=== PATIENT | female | born 1980 | race Caucasian/White ===

== ENCOUNTER 2017-10-23 05:46 | Inpatient (IN) | payer OTHER ==
[2017-10-23 06:54] VITALS: BMI 33.5
[2017-10-23] MEDS ORDERED: ELECTROLYTE-148 SOLN 500 ML IV ONE (08:18)
[2017-10-23] MEDS ORDERED: CITRIC ACID/SODIUM CITRATE 30 ML UNIT-DOSE CUP PO ONE (08:18)
--- NOTE | 2017-10-23 08:24 | HP ---
Past Medical History - Admission Chief Complaint: Elective History of Present Illness: 37 yo @ 39 weeks gestation, with 2 prior C-Sections is pre op for repeat C- Section. History Source: Patient Limitations to Obtaining History: No Limitations - Past Medical History ...: 2 ...Para: 1 ...Term: 1 ...EDC by Erika: 10/30/17 - Past Surgical History Past Surgical History: Yes: Hx Myomectomy: No Hx Transabdominal Cerclage: No - Smoking History Smoking history: Never smoked Have you smoked in the past 12 months: No If you are a former smoker, when did you quit?: 5 years ago - Alcohol/Substance Use Hx Alcohol Use: No History of Substance Use: reports: None - Social History Usual Living Arrangement: Yes: With Spouse History of Recent Travel: No Home Medications - Allergies Allergies/Adverse Reactions: Allergies Allergy/AdvReac Type Severity Reaction Status Date / Time No Known Drug Allergies Allergy Verified 12/15/15 13:04 - Home Medications Home Medications: Ambulatory Orders Pnv No.122/Iron/Folic Acid [ Multi Tablet] 1 each PO DAILY 12/15/15 Oxycodone HCl/Acetaminophen [Percocet 5-325 mg Tablet -] 1 - 2 tab PO Q4H #20 tablet 12/19/15 Family Disease History - Family Disease History Family History: Unremarkable Review of Systems - Review of Systems Constitutional: reports: No Symptoms Eyes: reports: No Symptoms HENT: reports: No Symptoms Neck: reports: No Symptoms Cardiovascular: reports: No Symptoms Respiratory: reports: No Symptoms Gastrointestinal: reports: No Symptoms Genitourinary: reports: No Symptoms Breasts: reports: No Symptoms Reported Musculoskeletal: reports: No Symptoms Neurological: reports: No Symptoms Endocrine: reports: No Symptoms Hematology/Lymphatic: reports: No Symptoms Psychiatric: reports: No Symptoms Pain Intensity: 0 Physical Exam - Maternity Vital Signs: Vital Signs Temperature 98.2 F 10/23/17 06:26 Pulse Rate 102 H 10/23/17 06:26 Respiratory Rate 20 10/23/17 06:26 Blood Pressure 109/72 10/23/17 06:26 O2 Sat by Pulse Oximetry (%) Constitutional: Yes: Well Nourished Eyes: Yes: Conjunctiva Clear HENT: Yes: Atraumatic Neck: Yes: Supple Cardiovascular: Yes: Regular Rate and Rhythm Lungs: Clear to auscultation - Abdominal Exam/OB Number of Fetuses: Single Presentation: Vertex - Vaginal Exam/OB Vaginal Bleediing: No Speculum Exam: No Dilatation (cm): 0 Amniotic Membrane Status: Intact - Physical Exam Musculoskeletal: Yes: WNL Extremities: Yes: WNL ...Motor Strength: WNL Psychiatric: Yes: Alert, Oriented Assessment/Plan Previous Pre op for repeat Consent signed Anesthesia to see patient
[2017-10-23] MEDS ORDERED: morphine SULFATE/Preservative Free 0.5 MG/ML (1cc Syringe) SPIN ONE (08:26)
--- NOTE | 2017-10-23 08:26 | OP ---
Operative Note - Note: Operative Date: 10/23/17 Pre-Operative Diagnosis: Elective Operation: Repeat Low transverse Findings: Baby in cephalic presentation Post-Operative Diagnosis: Same as Pre-op Surgeon: Eda Maya Commercial Loan Administrator: Alec Worthington Anesthesia: Spinal Specimens Removed: Placenta Estimated Blood Loss (mls): 600
[2017-10-23] MEDS ORDERED: ONDANSETRON 4 MG/2 ML VIAL IVPUSH PRN (08:36)
[2017-10-23] MEDS ORDERED: METHYLERGONOVINE MALEATE 0.2 MG/1 ML AMP IM PRN (09:28)
[2017-10-23] MEDS ORDERED: IBUPROFEN 600 MG TABLET (FP) PO PRN (09:28)
[2017-10-23] MEDS ORDERED: OXYTOCIN 20 UNITS in 0.9% NS 20 UNIT/1,000 ML INFUS.BAG IV SCH (09:30)
[2017-10-23] MEDS ORDERED: TUBERCULIN PPD 5 TU/0.1ML SYRINGE (IN PATIENT USE ONLY) ID ONE (09:34)
[2017-10-23] MEDS: IBUPROFEN 800 MG/8 ML IJ IVPB PRN ×2 (15:38→22:01)
[2017-10-24] MEDS: ACETAMINOPHEN 325 MG TABLET (FP) PO PRN ×3 (06:23→20:45)
[2017-10-24] MEDS: IBUPROFEN 600 MG TABLET (FP) PO PRN (06:24)
[2017-10-24 07:39] LABS: BASO % 0.5 % (0-2.0); EOS % 0.9 % (0-4.5); HEMATOCRIT 32.5 % (32.4-45.2); HEMOGLOBIN 10.8 GM/dL (10.7-15.3); LYMPH % 19.7 % (8-40); MCH 26.4 pg (25.7-33.7); MCHC 33.1 g/dl (32.0-36.0); MEAN CELL VOLUME 79.6 fl (80-96); MEAN PLT VOLUME 8.4 fl (7.5-11.1); MONO % 6.3 % (3.8-10.2); NEUT % 72.6 % (42.8-82.8); PLATELET COUNT 224 K/MM3 (134-434); RBC 4.08 M/mm3 (3.60-5.2); RDW 13.2 % (11.6-15.6); WHITE BLOOD COUNT 8.5 K/mm3 (4.0-10.0)
--- NOTE | 2017-10-24 08:03 | PN ---
Progress Note (short form) - Note Progress Note: Anesthesia post op Pt seen and examined S:alert and awake comfortable O: Vital Signs Temperature 98.2 F 10/24/17 06:00 Pulse Rate 80 10/24/17 06:00 Respiratory Rate 20 10/24/17 07:00 Blood Pressure 97/62 10/24/17 06:00 O2 Sat by Pulse Oximetry (%) CBC, BMP 10/24/17 06:30 A/P:s/p c section Doing well post op Continue current care Robert Barksdale MD
--- NOTE | 2017-10-24 08:23 | PN ---
Post Progress Note - Subjective Subjective: 37 yo Para 2 status post repeat , seen and evaluated. She c/o mild incision pain. Post Day: 1 Type of Delivery: Repeat C/S Vital Signs: Vital Signs Temperature 98.2 F 10/24/17 06:00 Pulse Rate 80 10/24/17 06:00 Respiratory Rate 20 10/24/17 07:00 Blood Pressure 97/62 10/24/17 06:00 O2 Sat by Pulse Oximetry (%) Breast Exam: Yes: Soft Uterus: Yes: Fundus Firm Incision: Yes: Dressing dry and intact Abdomen/GI: Yes: Abdomen soft Lochia: Yes: Rubra Lochia, amount: Moderate Extremities: Yes: Calves non-tender Perineum: Yes: Intact Activity: Ambulating - Labs Labs: CBC WBC 8.5 K/mm3 (4.0-10.0) 10/24/17 06:30 RBC 4.08 M/mm3 (3.60-5.2) 10/24/17 06:30 Hgb 10.8 GM/dL (10.7-15.3) 10/24/17 06:30 Hct 32.5 % (32.4-45.2) 10/24/17 06:30 MCV 79.6 fl (80-96) L 10/24/17 06:30 MCH 26.4 pg (25.7-33.7) 10/24/17 06:30 MCHC 33.1 g/dl (32.0-36.0) 10/24/17 06:30 RDW 13.2 % (11.6-15.6) 10/24/17 06:30 Plt Count 224 K/MM3 (134-434) 10/24/17 06:30 MPV 8.4 fl (7.5-11.1) 10/24/17 06:30 Neutrophils % 72.6 % (42.8-82.8) 10/24/17 06:30 Lymphocytes % 19.7 % (8-40) 10/24/17 06:30 Monocytes % 6.3 % (3.8-10.2) 10/24/17 06:30 Eosinophils % 0.9 % (0-4.5) D 10/24/17 06:30 Basophils % 0.5 % (0-2.0) 10/24/17 06:30 Assessment/Plan Status post repeat Ambulation Analgesia as needed Continue routine post op care
[2017-10-24] MEDS ORDERED: BISACODYL 10 MG SUPP.RECT RC PRN (09:28)
[2017-10-24] MEDS ORDERED: DIPHTH,PERTUSS(ACELL),TET 0.5 ML DISP.SYRIN IM ONE (10:00)
[2017-10-24] MEDS ORDERED: FLU VACC QS2017-18 36MOS UP/PF 60 MCG/0.5 ML SYRINGE IM ONE (10:00)
[2017-10-24] MEDS: SIMETHICONE 80 MG TAB.CHEW (FP) PO PRN ×2 (14:55→20:45)
[2017-10-24] MEDS: oxyCODONE HCL 5 MG TABLET PO PRN ×2 (14:57→20:46)
[2017-10-25] MEDS: ACETAMINOPHEN 325 MG TABLET (FP) PO PRN ×4 (01:27→19:46)
[2017-10-25] MEDS: SIMETHICONE 80 MG TAB.CHEW (FP) PO PRN ×4 (01:27→19:45)
[2017-10-25] MEDS: oxyCODONE HCL 5 MG TABLET PO PRN ×4 (01:29→19:45)
--- NOTE | 2017-10-25 12:39 | PN ---
Post Progress Note - Subjective Subjective: 37 yo Para 2 status post repeat , seen and evaluated. She c/o mild incision pain. Post Day: 2 Type of Delivery: Repeat C/S Vital Signs: Vital Signs Temperature 97.8 F 10/25/17 10:00 Pulse Rate 79 10/25/17 10:00 Respiratory Rate 20 10/25/17 10:00 Blood Pressure 111/70 10/25/17 10:00 O2 Sat by Pulse Oximetry (%) Breast Exam: Yes: Soft Uterus: Yes: Fundus Firm Incision: Yes: Other (Steri strips in place) Lochia: Yes: Rubra Lochia, amount: Small Extremities: Yes: Calves non-tender Perineum: Yes: Intact Activity: Ambulating - Labs Labs: CBC WBC 8.5 K/mm3 (4.0-10.0) 10/24/17 06:30 RBC 4.08 M/mm3 (3.60-5.2) 10/24/17 06:30 Hgb 10.8 GM/dL (10.7-15.3) 10/24/17 06:30 Hct 32.5 % (32.4-45.2) 10/24/17 06:30 MCV 79.6 fl (80-96) L 10/24/17 06:30 MCH 26.4 pg (25.7-33.7) 10/24/17 06:30 MCHC 33.1 g/dl (32.0-36.0) 10/24/17 06:30 RDW 13.2 % (11.6-15.6) 10/24/17 06:30 Plt Count 224 K/MM3 (134-434) 10/24/17 06:30 MPV 8.4 fl (7.5-11.1) 10/24/17 06:30 Neutrophils % 72.6 % (42.8-82.8) 10/24/17 06:30 Lymphocytes % 19.7 % (8-40) 10/24/17 06:30 Monocytes % 6.3 % (3.8-10.2) 10/24/17 06:30 Eosinophils % 0.9 % (0-4.5) D 10/24/17 06:30 Basophils % 0.5 % (0-2.0) 12/02/17 06:30 Assessment/Plan Status post repeat Stable Continue routine post op care
[2017-10-26] MEDS: ACETAMINOPHEN 325 MG TABLET (FP) PO PRN ×4 (02:06→16:11)
[2017-10-26] MEDS: IBUPROFEN 600 MG TABLET (FP) PO PRN ×4 (02:06→16:11)
[2017-10-26] MEDS: SIMETHICONE 80 MG TAB.CHEW (FP) PO PRN ×4 (02:06→16:12)
--- NOTE | 2017-10-26 07:07 | PN ---
Progress Note (SOAP) - Current Medications Current Medications: Active Medications Acetaminophen (Tylenol -) 650 mg PO Q4H PRN PRN Reason: FEVER OR PAIN Last Admin: 10/26/17 05:32 Dose: 650 mg Bisacodyl (Dulcolax Suppository -) 10 mg RC PRN PRN PRN Reason: CONSTIPATION Diphenhydramine HCl (Benadryl Injection -) 25 mg IVPUSH Q4H PRN PRN Reason: Pruritis Last Admin: 10/23/17 22:02 Dose: 25 mg Ibuprofen (Motrin -) 600 mg PO Q4H PRN PRN Reason: PAIN Last Admin: 10/26/17 05:31 Dose: 600 mg Ibuprofen (Motrin -) 600 mg PO Q4H PRN PRN Reason: PAIN Ibuprofen (Caldolor Injection -) 800 mg IVPB Q8H PRN PRN Reason: PAIN Last Admin: 10/23/17 22:01 Dose: 800 mg Methylergonovine Maleate (Methergine Injection -) 0.2 mg IM Q4H PRN PRN Reason: Excessive Bleeding (L&D) Ondansetron HCl (Zofran Injection) 4 mg IVPUSH Q4H PRN PRN Reason: NAUSEA Oxycodone HCl (Roxicodone -) 5 mg PO Q4H PRN PRN Reason: PAIN LEVEL 1-5 Last Admin: 10/25/17 19:45 Dose: 5 mg Simethicone (Mylicon -) 80 mg PO Q4H PRN PRN Reason: GAS Last Admin: 10/26/17 05:31 Dose: 80 mg - Objective Vital Signs: Vital Signs Temperature 98.0 F 10/25/17 21:31 Pulse Rate 90 10/25/17 21:31 Respiratory Rate 20 10/25/17 21:31 Blood Pressure 119/73 10/25/17 21:31 O2 Sat by Pulse Oximetry (%) Constitutional: Yes: Well Nourished, No Distress Neck: Yes: WNL Cardiovascular: Yes: WNL Respiratory: Yes: WNL ....Post : Yes: Uterus firm, Uterus non-tender Breast(s): Yes: WNL Musculoskeletal: Yes: WNL Extremities: Yes: WNL
[2017-10-26 07:14] LABS: BASO % 0.8 % (0-2.0); EOS % 2.8 % (0-4.5); HEMATOCRIT 32.5 % (32.4-45.2); HEMOGLOBIN 10.7 GM/dL (10.7-15.3); LYMPH % 31.6 % (8-40); MCH 26.3 pg (25.7-33.7); MCHC 32.8 g/dl (32.0-36.0); MEAN CELL VOLUME 80.2 fl (80-96); MEAN PLT VOLUME 7.8 fl (7.5-11.1); MONO % 7.6 % (3.8-10.2); NEUT % 57.2 % (42.8-82.8); PLATELET COUNT 278 K/MM3 (134-434); RBC 4.05 M/mm3 (3.60-5.2); RDW 13.6 % (11.6-15.6); WHITE BLOOD COUNT 7.2 K/mm3 (4.0-10.0)
[2017-10-26 08:32] VITALS: BP 91/54; PULSE 75; TEMP 98.1
--- NOTE | 2017-10-26 09:31 | DS ---
Physical Exam-MILL HELPER Vital Signs: Vital Signs Temperature 98.1 F 10/26/17 07:20 Pulse Rate 75 10/26/17 07:20 Respiratory Rate 20 10/26/17 07:20 Blood Pressure 91/54 10/26/17 07:20 O2 Sat by Pulse Oximetry (%) Constitutional: Yes: Well Nourished Eyes: Yes: Conjunctiva Clear HENT: Yes: Atraumatic Neck: Yes: Supple Cardiovascular: Yes: Regular Rate and Rhythm Respiratory: Yes: Regular, CTA Bilaterally Gastrointestinal: Yes: Normal Bowel Sounds External Genitalia: Yes: Normal Vaginal Exam: Yes: Normal Cervix: Yes: Normal Uterus: Yes: Normal Wound/Incision: Yes: Well Approximated, Steri Strips (in place). No: Bleeding Neurological: Yes: Alert, Oriented ...Motor Strength: WNL Psychiatric: Yes: Alert, Oriented Labs: CBC, BMP 10/26/17 06:40 Delivery - Delivery Type of Anesthesia: Spinal EBL (cc): 500 Delivery, Single - Stages of Labor Date of Delivery: 10/23/17 Time of Delivery: 08:40 Time Placenta Delivered: 08:41 - Condition of Slasher Runner/Telephone Information Clerk Present: Yes Name: Kian Waldrop Infant Gender: Male Weight: 7 lb 14 oz Position: OT Total Hours ROM (Hrs/Mins): 1M - 1 Minute Total Score: 9 5 Minutes Total Score: 9 - [place] Feeding Plan Initial Plan: Elected not to breastfeed exclusively throughout hospitalization Discharge Summary Reason For Visit: ADMIT Procedures: Principal: Repeat Low Transverse Hospital Course: Patient admitted for post op care. She received antiviral medication for cold sores of the lip. No additional dosage of antibiotic, no blood transfusion required. Condition: Good - Instructions Diet, Activity, Other Instructions: Physical activity Resume your normal everyday activity as tolerated no heavy lifting or exercise until seen by your surgeon. You may walk unlimited siena of and climb stairs. You may resume driving the car when you feel safe and comfortable behind the wheel. No sexual activity as instructed. Wound care If you have a bandage, leave it on, and keep dry for 48-72 hours. After that time discard the outer bandage. If they are tapes on the skin under the out of bandage leave them in place. They will peel off in the next 7 to 10 days. Do Not Peel them off. You may shower the day after surgery. If there are tapes present on the skin, you may shower over them. Diet There are no dietary restrictions. Eat healthy, high-fiber foods. Drink 6 to 8 glasses of liquid each day. This will assist in keeping your bowels are regular. Pain management You may take Tylenol or acetaminophen or Ibuprofen (for example, Motrin, Advil etc.) from my pain prescription medication is ordered should be taken as prescribed for moderate to severe pain. Call MD for any of the following: Severe pain not relieved by medication Fever of 101 or higher Excessive bleeding or drainage on dressing Inability to urinate Referrals: Eda Maya MD [Family Provider] - Disposition: HOME - Home Medications Comprehensive Discharge Medication List: Ambulatory Orders Pnv No.122/Iron/Folic Acid [ Multi Tablet] 1 each PO DAILY 12/15/15 Oxycodone HCl/Acetaminophen [Percocet 5-325 mg Tablet -] 1 - 2 tab PO Q4H #20 tablet 12/19/15 Ibuprofen [Motrin -] 600 mg PO QID PRN #28 tablet 10/26/17
[2017-10-26] MEDS ORDERED: valACYclovir HCL 500 MG TABLET (FP) PO SCH (10:00)
--- NOTE | 2017-10-29 10:08 | OP ---
DATE OF OPERATION: 10/23/2017 PREOPERATIVE DIAGNOSIS: Previous section, at 39 weeks. POSTOPERATIVE DIAGNOSIS: Previous section, at 39 weeks. PROCEDURE: Repeat low transverse section. SURGEON: Eda Maya MD MAIL MANAGER: CICI Bazzi ANESTHESIA: Spinal. COMPLICATIONS: None. ESTIMATED BLOOD LOSS: 600 mL DESCRIPTION OF PROCEDURE: Patient was taken to the operating room where spinal anesthesia was administered. Patient was then prepped and draped in proper sterile fashion. A Pfannenstiel skin incision was made and carried down to the underlying layer of fascia. The fascia was incised in the midline and extended laterally. The superior aspect of the fascial incision was then grasped with a Ana clamp, elevated, and the rectus muscle dissected out bluntly. The rectus muscle was then in the midline. The peritoneum identified and entered sharply with the Metzenbaum scissors. The peritoneum incision was extended superiorly and inferiorly with good visualization of the bladder. Then, the vesicouterine peritoneum was then grasped with a pickup and entered sharply with the Metzenbaum scissors. This incision was extended laterally and a bladder flap created digitally. Then, the lower uterine segment was incised using a 10-blade. This incision was extended laterally and the head delivered atraumatically. Nose and mouth were suctioned and the cord clamped and cut. The infant was handed to the waiting search engine optimization strategist. Then, the placenta was removed manually. The uterus exteriorized and cleared of all clots and debris. The uterine incision was repaired using 0 Biosyn in a running locked fashion. A second layer of the same suture was used as a means to provide excellent hemostasis. The pelvis was then completely irrigated. The uterus was returned to the abdomen. The peritoneum was closed using 2-0 Biosyn. The fascia was reapproximated using 0 Vicryl in a running fashion. The skin was closed in a subcuticular fashion using 3-0 Vicryl. Patient tolerated the procedure well. Patient was then taken to PACU in stable condition. PATHOLOGY: Placenta. Sabine GALLEGOS/[id number]
--- NOTE | 2017-10-30 16:50 | PATH ---
Surgical Pathology Report Patient Name: GALE PELAEZ [facility]. Rec. #: [id number] /Age/Gender: 1980 (Age: 37) / F Account: [id number] Location: [facility] OBS/AUTOMOBILE SERVICE WRITER Taken: 10/23/2017 Received: 10/26/2017 Reported: 10/30/2017 Physicians: dEa Maya M.D. Specimen(s) Received PLACENTA Clinical History History of previous Final Diagnosis PLACENTA, SECTION: 442 g THIRD TRIMESTER PLACENTA WITH TRIVASCULAR UMBILICAL CORD AND UNREMARKABLE PLACENTAL MEMBRANES. Electronically Signed Marcia Walden M.D. Gross Description The specimen is received fresh labeled placenta and is a 442 gram, 15.5 x 15.5 x 2.5 cm. placenta with attached membranes and umbilical cord. The attached membranes are sexton, translucent with focal opacities and insert marginally. The umbilical cord measures 27 cm. in length and averages 1.2 cm. in diameter. The cord inserts eccentrically, 4 cm. to the nearest margin. No true knots or strictures are identified. Cut surface of the umbilical cord reveals 3 vessels. The surface is nogueira-blue with minimal fibrin deposition and appropriate caliber vessels. The maternal surface is red-brown with focal defects. Sectioning reveals red-brown, spongy parenchyma. No lesions are identified. Heel Seat Sander sections are submitted in three cassettes as follows: 1- membrane rolls and umbilical cord; 2-3- full thickness sections of placenta. 10/29/201710/29/2017
== END 2017-10-26 18:20 | disposition home or self-care (01) | DRG 540 ==
LOC: JLDR 05:46 → J3W 10:35
PROVIDERS: ADMIT Obstetrics & Gynecology; ATTEND Obstetrics & Gynecology
PROC: 10D00Z1 Extraction of Products of Conception, Low, Open Approach (ICD-10-PCS; principal; 2017-10-23)
PROC: 3E0334Z Introduction of Serum, Toxoid and Vaccine into Peripheral Vein, Percutaneous Approach (ICD-10-PCS; 2017-10-23)
DX: O34.211 Maternal care for low transverse scar from previous cesarean delivery (principal); N85.8 Other specified noninflammatory disorders of uterus; Z3A.39 39 weeks gestation of pregnancy; O26.893 Other specified pregnancy related conditions, third trimester; Z67.91 Unspecified blood type, Rh negative; Z37.0 Single live birth
CPT/HCPCS: 36415; 71020-TC; 85025; 85461; 86999; 88307-TC; 90686; 90715; G0008

== ENCOUNTER 2017-10-29 08:31 | Emergency (ER) | payer OTHER ==
[2017-10-29 08:37] VITALS: BP 141/75; PULSE 79; TEMP 97.9; BMI 31.1
--- NOTE | 2017-10-29 09:14 | PDOC ---
History of Present Illness - General Stated Complaint: POST-SURG, ALLERGIC RXN Time Seen by Provider: 10/29/17 08:49 History Source: Patient Exam Limitations: No Limitations - History of Present Illness Initial Comments: 10/29/17 09:01 Patient is a [37-year-old female, with on 10/28/2017. Started to have rash with itching yesterday only took Motrin. Patient had pruritic rash to torso or legs and arms, woke up today with swelling to the face, swelling to the face has prior to arrival denies any respiratory difficulty, no difficulty swallowing, no fever. Still with pruritus generalized.] Past Medical History: [Denies]. Allergies: No known allergies Medications: [Motrin when necessary and ] Family History: Non-contributory Social History: Denies smoking, alcohol use, or IVDU Review of Systems GENERAL/CONSTITUTIONAL: [No fever or chills. No weakness. No weight change.] HEAD, EYES, EARS, NOSE AND THROAT: [No change in vision. No ear pain or discharge. No sore throat. ] CARDIOVASCULAR: [No chest pain or shortness of breath.] RESPIRATORY: [No cough, wheezing, or hemoptysis.] GASTROINTESTINAL: [No nausea, vomiting, diarrhea or constipation. No rectal bleeding.] GENITOURINARY: [No dysuria, frequency, or change in urination.] MUSCULOSKELETAL: [No joint or muscle swelling or pain. No neck or back pain.] SKIN : [Generalized pruritus, wheels.] NEUROLOGIC: [No headache, vertigo, loss of consciousness, or loss of sensation.] PSYCHIATRIC: [No depression or anxiety.] ENDOCRINE: [No increased thirst. No abnormal weight change.] HEMATOLOGIC/LYMPHATIC: [No anemia, easy bleeding, or history of blood clots.] ALLERGIC/IMMUNOLOGIC: [No hives or skin allergy. No latex allergy.] Physical Exam: GENERAL: [The patient is awake, alert, and fully oriented, in no acute distress. ] HEAD: [Normal with no signs of trauma.] EYES: [Pupils equal, round and reactive to light, extraocular movements intact, sclera anicteric, conjunctiva clear.] ENT: [Ears normal, nares patent, oropharynx clear without exudates. Moist mucous membranes. No uvula deviation] NECK: [Normal range of motion, supple without lymphadenopathy, JVD, or masses.] LUNGS: [Breath sounds equal, clear to auscultation bilaterally. No wheezes, and no crackles.] HEART: [Regular rate and rhythm, normal S1 and S2 without murmur, rub or gallop. ] ABDOMEN: [Soft, nontender, normoactive bowel sounds. No guarding, no rebound. No masses. No bruising or abrasions] RECTAL : [Guaiac negative, normal rectal tone.] MUSCULOSKELETAL: [Normal range of motion, no edema. No clubbing or cyanosis. No cords, erythema, or tenderness. No CVA Tenderness with fist.] NEUROLOGICAL: [Cranial nerves II through XII grossly intact. Normal speech, normal gait.] PSYCH: [Normal mood, normal affect.] SKIN: [Hives noted to torso and upper legs.] 10/29/17 09:17 Past History - Past Medical History Allergies/Adverse Reactions: Allergies Allergy/AdvReac Type Severity Reaction Status Date / Time No Known Drug Allergies Allergy Verified 10/29/17 08:34 Home Medications: Ambulatory Orders Hydrocortisone 2.5% Lotion [Hytone 2.5% Lotion -] 1 applic TP BID #1 bottle 06/08 Loratadine [Claritin -] 10 mg PO DAILY #30 tablet 10/29/17 Asthma: No Cancer: No Cardiac Disorders: No COPD: No Diabetes: No HTN: No Seizures: No Thyroid Disease: No - Immunization History Immunization Up to Date: Yes - Suicide/Smoking/Psychosocial Hx Smoking History: Never smoked Have you smoked in the past 12 months: No If you are a former smoker, when did you quit?: 5 years ago Information on smoking cessation initiated: No Hx Alcohol Use: No Drug/Substance Use Hx: No Substance Use Type: None Hx Substance Use Treatment: No *Physical Exam - Vital Signs Last Vital Signs Temp Pulse Resp BP Pulse Ox 97.9 F 79 16 141/75 96 10/29/17 08:34 10/29/17 08:34 10/29/17 08:34 10/29/17 08:34 10/29/17 08:34 Medical Decision Making - Medical Decision Making 10/29/17 09:14 A/P : Patient here for evaluation of hives. Started yesterday. Had on Thursday. Woke up today with swelling to face, resolved prior to arrival. Still with hives around knees and torso. I have left a message for Dr. Maya. and Dr. Shay. Awaiting call back to discuss. 10/29/17 10:[address] Shay and Dr. Maya. Give patient Claritin while in emergency department discharge on Claritin and hydrocortisone cream, follow-up with dermatology. She is in no acute distress no difficulty swallowing, no difficulty breathing. I discussed the physical exam findings, ancillary test results and final diagnoses with the patient. I answered all of the patient's questions. The patient was satisfied with the care received and felt comfortable with the discharge plan and treatment plan. The patient will call to arrange follow-up and will return to the Emergency Department with any new, persistent or worsening symptoms. *DC/Admit/Observation/Transfer Diagnosis at time of Disposition: Rash and nonspecific skin eruption - Discharge Dispostion Disposition: HOME Condition at time of disposition: Stable Admit: No - Prescriptions Prescriptions: Hydrocortisone 2.5% Lotion [Hytone 2.5% Lotion -] 1 applic TP BID #1 bottle Loratadine [Claritin -] 10 mg PO DAILY #30 tablet - Referrals Referrals: Carlo Mayen [Non Staff, Medical] - - Patient Instructions Printed Discharge Instructions: DI for Rash Additional Instructions: Please no new lotion soaps or detergents. No Motrin, take only Tylenol as needed for pain Recommend follow-up with dermatology as soon as possible Please use the steroid cream sparingly - Post Discharge Activity
[2017-10-29] MEDS ORDERED: LORATADINE 10 MG TABLET PO ONE (10:12)
[2017-10-29] MEDS ORDERED: LORATADINE 10 MG TABLET ONE (10:15)
== END 2017-10-29 10:22 | disposition home or self-care (01) ==
LOC: JERFT 08:31
DX: L50.9 Urticaria, unspecified (principal)
CPT/HCPCS: 99281-25

== ENCOUNTER → 2019-01-04 | Day surgery (SDC) | payer OTHER ==
--- NOTE | 2019-01-05 14:14 | PATH ---
Cytology Non-Gynecological Report Patient Name: GALE PELAEZ [facility]. Rec. #: [id number] /Age/Gender: 1980 (Age: 39) / F Account: [id number] Location: RADIOLOGY INTER Taken: 01/04/2019 Received: 01/04/2019 Reported: 01/05/2019 Physicians: Sabine Fisher M.D. Specimen(s) Received RIGHT THYROID FNA Clinical History Right thyroid nodule, 1.44 x 0.87 x 1.02 cm Final Diagnosis THYROID, RIGHT, FINE NEEDLE ASPIRATION: SATISFACTORY FOR EVALUATION. BETHESDA CLASS II: BENIGN. CYTOLOGIC FINDINGS ARE CONSISTENT WITH A BENIGN FOLLICULAR NODULE. SMALL FOLLICULAR CELLS, RARE MACROPHAGES AND ABUNDANT COLLOID PRESENT. Comment: Rare clusters of small follicular cells in a background of abundant thin colloid are present on direct smears. Findings are best represented on the cell block material wherein few strips and pseudopapillary fragment of small follicular cells are admixed with rare colloid and rare macrophages. Electronically Signed Marcia Walden M.D. Gross Description Received are eight direct smears, four of which are air-dried and Diff-Quik stained, and four of which are alcohol fixed and Pap stained. Also received is 20 ml of bloody formalin from which one cellblock is prepared.
== END | disposition home or self-care (01) ==
LOC: JRADIR 08:46
PROVIDERS: ATTEND Internal Medicine Endocrinology, Diabetes & Metabolism
PROC: 0G9H3ZX Drainage of Right Thyroid Gland Lobe, Percutaneous Approach, Diagnostic (ICD-10-PCS; principal; 2019-01-04)
DX: E04.1 Nontoxic single thyroid nodule (principal)
CPT/HCPCS: 76942; 88173; 88305-TC